=== PATIENT | male | born 1965 | race Caucasian/White ===

== ENCOUNTER 2020-09-26 21:13 | Emergency (ER) | payer OTHER ==
[2020-09-26] MEDS ORDERED: Acetaminophen 500 MG TAB ONE ×2 (21:51)
[2020-09-26] MEDS ORDERED: Tetracaine 0.5% PF 4 ML BOT ONE (22:35)
[2020-09-26] MEDS ORDERED: Fluorescein Opthalmic Strip ONE (22:35)
== END 2020-09-26 22:40 | disposition home or self-care (01) ==
LOC: MADERS 21:13
DX: M23.91 Unspecified internal derangement of right knee (principal); M17.11 Unilateral primary osteoarthritis, right knee; I10 Essential (primary) hypertension; W17.2XXA Fall into hole, initial encounter